=== PATIENT | female | born 1970 | race Caucasian/White ===

== ENCOUNTER 2017-06-28 22:33 | Emergency (ER) | payer MEDICAID ==
--- NOTE | 2017-06-28 22:40 | EDM.PDOC ---
ED HPI GENERAL MEDICAL PROBLEM - General Chief Complaint: Fever Stated Complaint: FEVER Time Seen by Provider: 06/28/17 22:33 Source of Information: Reports: Patient, Family History Limitations: Reports: No Limitations, Respiratory Distress - History of Present Illness INITIAL COMMENTS - FREE TEXT/NARRATIVE: 47 y.o.w.f -smoker- came to the ed with severe cough and SOB. Temp was "39 at home", with gen body ache. Last ETOH intake last night. Poor po intake in the past few days. No N/V/D no C/P or any other acute medical issues. BP 148/84 Pulse 84 Temp 37.2 Pulse ox 97% RR 17. Onset Date: 06/28/17 Onset Time: 08:00 Duration: Hour(s):, Day(s):, Intermittent Location: Reports: Chest Quality: Reports: Same as Previous Episode Severity: Moderate Improves with: Reports: Eating Worsens with: Reports: Movement Context: Reports: Other (sob and cough) Associated Symptoms: Reports: Cough, Loss of Appetite - Related Data Allergies Allergy/AdvReac Type Severity Reaction Status Date / Time trazodone Allergy Rash Verified 06/28/17 23:19 Home Meds: Home Meds Albuterol Sulfate [Ventolin Hfa] 1 puff INH ASDIRECTED PRN 06/28/17 [History] predniSONE 20 mg PO WITHBREAKFAST #4 tablet 06/29/17 [Rx] Past Medical History - Past Health History Medical/Surgical History: Denies Medical/Surgical History Other Neuro History: States she has had multiple concussions. Social & Family History - Tobacco Use Smoking Status *Q: Current Every Day Smoker Years of Tobacco use: 20 Packs/Tins Daily: 1 Used Tobacco, but Quit: No Second Hand Smoke Exposure: Yes - Caffeine Use Caffeine Use: Reports: Coffee - Recreational Drug Use Recreational Drug Use: No ED ROS GENERAL - Review of Systems Review Of Systems: See Below Constitutional: Reports: No Symptoms HEENT: Reports: No Symptoms Respiratory: Reports: Shortness of Breath, Cough Cardiovascular: Reports: No Symptoms Endocrine: Reports: No Symptoms GI/Abdominal: Reports: No Symptoms : Reports: No Symptoms Musculoskeletal: Reports: No Symptoms Skin: Reports: No Symptoms Neurological: Reports: No Symptoms Psychiatric: Reports: No Symptoms Hematologic/Lymphatic: Reports: No Symptoms Immunologic: Reports: No Symptoms ED EXAM, GENERAL - Physical Exam Exam: See Below Exam Limited By: No Limitations General Appearance: Alert, WD/WN, Mild Distress, Thin Eye Exam: Bilateral Eye: Normal Inspection Ears: Normal External Exam Ear Exam: Bilateral Ear: Auricle Normal Nose: Normal Inspection Throat/Mouth: Other (dry mucosal membrane) Head: Atraumatic, Normocephalic Neck: Normal Inspection Respiratory/Chest: Respiratory Distress, Decreased Breath Sounds, Wheezing, Prolonged Expiration Cardiovascular: Normal Peripheral Pulses, Regular Rate, Rhythm, No Edema Peripheral Pulses: 1+: Radial (R) GI/Abdominal: Normal Bowel Sounds, Soft, Non-Tender (Female) Exam: Deferred Rectal (Female) Exam: Deferred Back Exam: Normal Inspection, Full Range of Motion Extremities: Normal Inspection, Normal Range of Motion Neurological: Alert, Oriented, CN II-XII Intact, Normal Cognition, Normal Gait Psychiatric: Normal Affect, Normal Mood Skin Exam: Warm, Dry, Intact, Normal Color, No Rash Lymphatic: No Adenopathy Course - Vital Signs Text/Narrative:: 47 y.o.w.f -smoker- came to the ed with severe cough and SOB. Temp was "39 at home", with gen body ache. Last ETOH intake last night. Poor po intake in the past few days. No N/V/D no C/P or any other acute medical issues. BP 148/84 Pulse 84 Temp 37.2 Pulse ox 97% RR 17. PE: nonprod. cough, exp. wheezes, dry mucosal membrane, decr. skin turgor Imaging: CXR: NAD poss beginnging of COPD Labs: WBC, HCT and HGB nl K 3.2 Impression: Dehydration, Muscle ache, Hypokalemia, Asthma Tx: Toradol, NS, Solumedrol, Duoneb Reexam: Improved, ptwas ambulating fine and requested to be discharged. Plan: D/C with instrictions, pt has Albuterol inhalers at home. Pt was advised to eat bananas and potatos to increase her potassium Last Recorded V/S: Last Vital Signs Temp 37.3 C 06/29/17 00:25 Pulse 74 06/29/17 00:25 Resp 16 06/29/17 00:25 BP 144/80 H 06/29/17 00:25 Pulse Ox 99 06/29/17 00:25 - Orders/Labs/Meds Orders: Active Orders 24 hr Category Date Time Status RT Aerosol Therapy [RC] ASDIRECTED Care 06/28/17 23:45 Active Chest 2V [CR] Stat Exams 06/28/17 22:41 Taken CULTURE BLOOD [BC] Urgent Lab 06/28/17 22:50 Received Blood Culture x2 Reflex Set [OM.PC] Urgent Oth 06/28/17 22:41 Ordered Labs: Laboratory Tests 06/28/17 06/28/17 06/28/17 Range/Units 22:50 22:50 22:50 WBC 9.2 (4.5-12.0) X10-3/uL RBC 3.75 (3.23-5.20) x10(6)uL Hgb 12.9 (11.5-15.5) g/dL Hct 37.5 (30.0-51.3) % MCV 99.9 H (80-96) fL MCH 34.5 H (27.7-33.6) pg MCHC 34.5 (32.2-35.4) g/dL RDW 12.5 (11.5-15.5) % Plt Count 256 (125-369) X10(3)uL MPV 7.9 (7.4-10.4) fL Neut % (Auto) 80.1 (46-82) % Lymph % (Auto) 13.0 (13-37) % Vance % (Auto) 4.9 (4-12) % Eos % (Auto) 0 L (1.0-5.0) % Baso % (Auto) 2 (0-2) % Neut # (Auto) 7.4 (1.6-8.3) # Lymph # (Auto) 1.2 (0.6-5.0) # Vance # (Auto) 0.5 (0.0-1.3) # Eos # (Auto) 0.0 (0.0-0.8) # Baso # (Auto) 0.1 (0.0-0.2) # Sodium 139 (135-145) mmol/L Potassium 3.2 L (3.5-5.3) mmol/L Chloride 107 (100-110) mmol/L Carbon Dioxide 21 (21-32) mmol/L BUN 9 (7-18) mg/dL Creatinine 0.9 (0.55-1.02) mg/dL Est Cr Clr Drug Dosing TNP Estimated GFR (MDRD) > 60 (>60) BUN/Creatinine Ratio 10.0 (9-20) Glucose 102 (80-116) mg/dL Lactic Acid 1.5 (0.4-2.2) mmol/L Calcium 8.1 L (8.6-10.2) mg/dL Urine Color (YELLOW) Urine Appearance (CLEAR) Urine pH (5.0-6.5) Ur Specific Mathis (1.010-1.025) Urine Protein (NEGATIVE) mg/dL Urine Glucose (UA) (NEGATIVE) mg/dL Urine Ketones (NEGATIVE) mg/dL Urine Occult Blood (NEGATIVE) Urine Nitrite (NEGATIVE) Urine Bilirubin (NEGATIVE) Urine Urobilinogen (NEGATIVE) mg/dL Ur Leukocyte Esterase (NEGATIVE) Urine RBC (0) Urine WBC (0) Ur Squamous Epith Cells (NS,R,O) Urine Bacteria (NS) 06/28/17 Range/Units 23:10 WBC (4.5-12.0) X10-3/uL RBC (3.23-5.20) x10(6)uL Hgb (11.5-15.5) g/dL Hct (30.0-51.3) % MCV (80-96) fL MCH (27.7-33.6) pg MCHC (32.2-35.4) g/dL RDW (11.5-15.5) % Plt Count (125-369) X10(3)uL MPV (7.4-10.4) fL Neut % (Auto) (46-82) % Lymph % (Auto) (13-37) % Vance % (Auto) (4-12) % Eos % (Auto) (1.0-5.0) % Baso % (Auto) (0-2) % Neut # (Auto) (1.6-8.3) # Lymph # (Auto) (0.6-5.0) # Vance # (Auto) (0.0-1.3) # Eos # (Auto) (0.0-0.8) # Baso # (Auto) (0.0-0.2) # Sodium (135-145) mmol/L Potassium (3.5-5.3) mmol/L Chloride (100-110) mmol/L Carbon Dioxide (21-32) mmol/L BUN (7-18) mg/dL Creatinine (0.55-1.02) mg/dL Est Cr Clr Drug Dosing Estimated GFR (MDRD) (>60) BUN/Creatinine Ratio (9-20) Glucose (80-116) mg/dL Lactic Acid (0.4-2.2) mmol/L Calcium (8.6-10.2) mg/dL Urine Color Yellow (YELLOW) Urine Appearance Slightly cloudy (CLEAR) Urine pH 6.0 (5.0-6.5) Ur Specific Mathis 1.020 (1.010-1.025) Urine Protein Negative (NEGATIVE) mg/dL Urine Glucose (UA) Normal (NEGATIVE) mg/dL Urine Ketones Negative (NEGATIVE) mg/dL Urine Occult Blood Negative (NEGATIVE) Urine Nitrite Negative (NEGATIVE) Urine Bilirubin Negative (NEGATIVE) Urine Urobilinogen Normal (NEGATIVE) mg/dL Ur Leukocyte Esterase Negative (NEGATIVE) Urine RBC 0-5 (0) Urine WBC 0-5 (0) Ur Squamous Epith Cells Few H (NS,R,O) Urine Bacteria Few H (NS) Meds: Medications Discontinued Medications Generic Name Dose Route Start Last Admin Trade Name Freq PRN Reason Stop Dose Admin Albuterol/Ipratropium 3 ml 06/28/17 23:45 06/29/17 00:12 Duoneb 3.0-0.5 Mg/3 Ml NEB 06/28/17 23:46 3 ml ONETIME ONE Administration Sodium Chloride 1,000 mls @ 999 mls/hr 06/28/17 22:41 06/28/17 22:57 Normal Saline IV 06/28/17 23:41 999 mls/hr .BOLUS ONE Administration Ketorolac Tromethamine 30 mg 06/28/17 22:41 06/28/17 22:57 Toradol IVPUSH 06/28/17 22:42 30 mg ONETIME ONE Administration Methylprednisolone Sodium Succinate 125 mg 06/28/17 23:45 06/29/17 00:12 Solu-Medrol IVPUSH 06/28/17 23:46 125 mg ONETIME ONE Administration Departure - Departure Time of Disposition: 00:21 Disposition: Home, Self-Care 01 Condition: Good Clinical Impression: COPD (chronic obstructive pulmonary disease) Qualifiers: COPD type: unspecified COPD Qualified Code(s): J44.9 - Chronic obstructive pulmonary disease, unspecified - Discharge Information Prescriptions: predniSONE 20 mg PO WITHBREAKFAST #4 tablet Referrals: PCP,Unknown [Primary Care Provider] - Forms: ED Department Discharge Additional Instructions: Please take the prednisone and Albuterol inhalers as recommended, please f/u with your PMD, come back if your symptoms get worse acutely. Please quit tobacco use immediately. - My Orders Last 24 Hours: My Active Orders 06/28/17 22:41 Chest 2V [CR] Stat Blood Culture x2 Reflex Set [OM.PC] Urgent 06/28/17 22:50 CULTURE BLOOD [BC] Urgent 06/28/17 23:45 RT Aerosol Therapy [RC] ASDIRECTED - Assessment/Plan Last 24 Hours: My Active Orders 06/28/17 22:41 Chest 2V [CR] Stat Blood Culture x2 Reflex Set [OM.PC] Urgent 06/28/17 22:50 CULTURE BLOOD [BC] Urgent 06/28/17 23:45 RT Aerosol Therapy [RC] ASDIRECTED
[2017-06-28] MEDS ORDERED: Ketorolac 30 MG/ML SDV IVPUSH ONE (22:41)
[2017-06-28] MEDS ORDERED: Sodium Chloride 0.9% 1,000 ML IV ONE (22:41)
[2017-06-28] MEDS ORDERED: Albuterol/Ipratropium 3.0-0.5 MG/3 ML Neb Soln NEB ONE (23:45)
[2017-06-28] MEDS ORDERED: methylPREDNISolone Sodium Succinate 125 MG/2 ML SDV IVPUSH ONE (23:45)
[2017-06-29 01:11] VITALS: BP 144/80
--- NOTE | 2017-07-01 12:26 | CR ---
INDICATION: Cough and fever. CHEST: Two AP and a lateral view of the chest were obtained. The AP diameter is prominent. The diaphragm leaves are slightly flattened, raising question of a mild degree of COPD. This should be correlated clinically. A definite active infiltrate or effusion was not identified, however, there is bronchial wall cuffing of mild to moderate degree, which may be on the basis of active peribronchial disease and/or fibrosis and should be correlated clinically. IMPRESSION: 1. Bronchial wall cuffing which may be on the basis of active peribronchial disease - correlate clinically. 2. Obstructive airway disease likely. MTDD
== END 2017-06-29 00:35 | disposition home or self-care (01) ==
LOC: FB.ED 22:33
DX: J44.9 Chronic obstructive pulmonary disease, unspecified (principal); E87.6 Hypokalemia; E86.0 Dehydration; Z88.8 Allergy status to other drugs, medicaments and biological substances; F17.210 Nicotine dependence, cigarettes, uncomplicated
CPT/HCPCS: 36415; 71020; 80048; 81001; 83605; 85025; 87040; 96361; 96374; 96375; 99283; J1885; J2930; J7040; J7620; 94640

== ENCOUNTER 2024-12-01 03:41 | Emergency (ER) | payer SELFPAY ==
[2024-12-01] MEDS ORDERED: Sodium Chloride 0.9% 10 ML Syringe FLUSH PRN (04:06)
[2024-12-01 04:07] VITALS: BP 158/97; PULSE 75
[2024-12-01] MEDS: Aspirin 81 MG Tab.Chew PO ONE (04:15)
[2024-12-01 04:20] LABS: BASOPHILS ABSOLUTE AUTO 0.1 x10-3/uL (0.0-0.1); EOSINOPHILS ABSOLUTE AUTO 0.2 x10-3/uL (0.0-0.8); MONOCYTES ABSOLUTE AUTO 1.2 x10-3/uL (0.3-1.0)
[2024-12-01 04:23] LABS: BLOOD UREA NITROGEN,BUN 12 mg/dL (7-18); BUN/CREATININE RATIO 13.3 (9-20); CALCIUM 8.8 mg/dL (8.6-10.2); CARBON DIOXIDE,CO2 24 mmol/L (21-32); CHLORIDE,CL 105 mmol/L (100-110); CREATININE 0.9 mg/dL (0.55-1.02); EST CRCL DRUG DOSING (CG) 66.12 mL/min; ESTIMATED GFR 76 mL/min (>60); GLUCOSE RANDOM 98 mg/dL (80-116); POTASSIUM,K 4.1 mmol/L (3.5-5.3); SODIUM,NA 139 mmol/L (135-145)
[2024-12-01 04:28] LABS: ALANINE AMINOTRANSFERASE,ALT 65 U/L (12-36); ALBUMIN 3.3 g/dL (3.5-5.2); ALKALINE PHOSPHATASE 115 IU/L (56-112); ASPARTATE AMNIOTRANSFERASE,AST 18 IU/L (5-25); BILIRUBIN TOTAL 0.3 mg/dL (0.1-1.3); PROTEIN TOTAL,TP 6.6 g/dL (6.0-8.0)
[2024-12-01 04:31] LABS: BASOPHILS PERCENT AUTO 1.2 % (0.2-1.5); EOSINOPHILS PERCENT AUTO 1.4 % (0.6-8.1); HEMATOCRIT 38.4 % (34.2-48.2); HEMOGLOBIN 13.7 g/dL (11.4-15.5); LYMPHOCYTES ABSOLUTE AUTO 3.9 x10-3/uL (1.0-4.4); LYMPHOCYTES PERCENT AUTO 30.8 % (18.4-52.1); MEAN CORPUSCULAR HEMOGLOBIN 36.5 pg (23.9-33.9); MEAN CORPUSCULAR HGB CONC 35.7 g/dL (31.9-34.8); MEAN CORPUSCULAR VOLUME 102.2 fL (76.7-100.5); MEAN PLATELET VOLUME 8.5 fL (7.1-12.4); MONOCYTES PERCENT AUTO 9.4 % (4.4-15.7); NEUTROPHILS ABSOLUTE AUTO 7.3 x10-3/uL (1.5-6.3); NEUTROPHILS PERCENT AUTO 57.2 % (30.8-76.2); PLATELET COUNT,PLT 294 x10(3)uL (151-488); RED CELL DISTRIBUTION WIDTH 17.5 % (12.3-16.5); WHITE BLOOD CELL COUNT,WBC 12.7 x10-3/uL (3.0-10.3)
[2024-12-01 04:33] LABS: RED BLOOD CELL COUNT 3.75 x10(6)uL (3.60-5.20)
[2024-12-01 04:35] LABS: TROPONIN I 7.5 pg/mL (4.0-60.3)
[2024-12-01] MEDS: Iopamidol 755 Mg/ML 100 ML Bottle IV SCH (04:58)
[2024-12-01] MEDS: Nitroglycerin 0.4 MG Tab.SL SL ONE (05:07)
[2024-12-01] MEDS: methylPREDNISolone Sodium Succinate 125 MG/2 ML SDV IVPUSH ONE (05:15)
[2024-12-01] MEDS: Albuterol/Ipratropium 3.0-0.5 MG/3 ML Neb Soln NEB ONE (05:15)
[2024-12-01] MEDS: Amoxicillin/Clavulanate K 875-125 MG Tab PO ONE (05:15)
[2024-12-01] MEDS: Ketorolac 30 MG/ML SDV IVPUSH ONE (05:50)
== END 2024-12-01 05:59 | disposition home or self-care (01) ==
LOC: FB.ED 03:41
DX: J44.1 Chronic obstructive pulmonary disease with (acute) exacerbation (principal); R07.1 Chest pain on breathing; F17.200 Nicotine dependence, unspecified, uncomplicated; Z88.8 Allergy status to other drugs, medicaments and biological substances; Z90.49 Acquired absence of other specified parts of digestive tract
CPT/HCPCS: 36415; 71045; 71275; 80053; 83880; 84484; 85025; 85379; 93005; 96374; 96375; 99285; A9270; J1885; J2919; J7620; Q9967

== ENCOUNTER → 2025-05-20 | Day surgery (SDC) | payer MEDICAID ==
[~2025-05-20] MED LIST: Midazolam 1 MG/ML 2 ML SDV IV ONE; Propofol 200 MG/20 ML SDV IV ONE; Sodium Chloride 0.9% 10 ML Syringe FLUSH PRN
[2025-05-20 10:45] VITALS: BP 120/85; PULSE 87
[2025-05-20] MEDS: Lactated Ringers 1,000 ML IV SCH (11:05)
[2025-05-21 21:10] LABS: LACTOFERRIN,FECAL BY ELISA Negative (Negative)
[2025-05-22 04:08] LABS: ADENOVIRUS 40/41 PCR Not Detected; ASTROVIRUS PCR Not Detected; CRYPTOSPORIDIUM PCR Not Detected; CYCLOSPORA CAYETANENSIS PCR Not Detected; ENTAMOEBA HISTOLYTICA PCR Not Detected; ENTEROAGGREGATIVE E. COLI PCR Not Detected; ENTEROPATHOGENIC E. COLI PCR Not Detected; ENTEROTOXIGENIC E. COLI PCR Not Detected; GIARDIA LAMBLIA PCR Not Detected; NOROVIRUS GI/GII PCR Not Detected; PLESIOMONAS SHIGELLOIDES PCR Not Detected; ROTAVIRUS A PCR Not Detected; SALMONELLA PCR Not Detected; SAPOVIRUS PCR Not Detected; SHIG/ENTEROINVASIVE E COLI PCR Not Detected; SHIGA TOXIN-PRODUC E. COLI PCR Not Detected; VIBRIO CHOLERAE PCR Not Detected; VIBRIO PCR Not Detected; YERSINIA ENTEROCOLITICA PCR Not Detected
== END ==
LOC: FB.SDS 10:00
PROVIDERS: ATTEND Surgery
DX: K92.2 Gastrointestinal hemorrhage, unspecified (principal); K63.89 Other specified diseases of intestine; E66.9 Obesity, unspecified; F17.210 Nicotine dependence, cigarettes, uncomplicated; Z88.1 Allergy status to other antibiotic agents; Z88.8 Allergy status to other drugs, medicaments and biological substances; Z68.31 Body mass index [BMI] 31.0-31.9, adult; Z79.82 Long term (current) use of aspirin
CPT/HCPCS: 00811; 45380; 83630; 87507; 88305; A9270; J2003; J2250; J2704; J7120